=== PATIENT | female | born 1990 | race Caucasian/White ===

== ENCOUNTER 2024-03-20 13:35 | Emergency (ER) | payer MEDICAID, OTHER ==
[~2024-03-20] VITALS: Ht 152.4 cm; Wt 55.3 kg
[~2024-03-20 13:35] MED LIST: PREN-96 PO
[2024-03-20 16:25] VITALS: BP 118/91; PULSE 98; RESP 16; TEMP 98.1; O2SAT 98
[2024-03-20] MEDS ORDERED: BACDST PO (16:37)
[2024-03-20] MEDS ORDERED: CEPH500T PO (16:37)
[2024-03-20] MEDS: cefTRIAXone SOD 1,000 MG VL IM ONE (16:43)
== END 2024-03-20 16:47 | disposition home or self-care (01) ==
LOC: ER 13:35
DX: Z48.00 Encounter for change or removal of nonsurgical wound dressing (principal); Z91.030 Bee allergy status; Z91.148 Patient's other noncompliance with medication regimen for other reason
CPT/HCPCS: 96372; 99283; J0696